=== PATIENT | female | born 1960 | race African-American/Black ===

== ENCOUNTER 2017-06-30 12:51 | Emergency (ER) | payer SELFPAY ==
[~2017-06-30] VITALS: Ht 167.6 cm; Wt 110.0 kg
[~2017-06-30 12:51] MED LIST: COUM5TAB PO; GLUCTAB PO
[2017-06-30 12:54] VITALS: BP 131/69; PULSE 77; RESP 16; TEMP 97.9; O2SAT 98
[2017-06-30] MEDS ORDERED: COUM7.5T PO (13:06)
[2017-06-30] MEDS ORDERED: FURO1TAB60 PO (13:06)
[2017-06-30] MEDS ORDERED: MORPHINE SULFATE 4 MG/ML INJ IV PUSH ONE (14:00)
--- NOTE | 2017-06-30 14:36 | RADRPT ---
EXAM DATE/TIME: 06/30/2017 13:59 [facility] COMPARISON: No previous studies available for comparison. INDICATIONS : Right leg pain. MEDICAL HISTORY : Cerebrovascular accident. Deep vein thrombosis. Pulmonary embolism. Arthritis. Diabetes. Depress ion. SURGICAL HISTORY : section. ENCOUNTER: Initial ACUITY: 1 week PAIN SCORE: 10/10 LOCATION: Right leg. TECHNIQUE: Venous ultrasound of the leg was performed from the inguinal ligament to the proximal calf. Real-philly e, color Doppler and spectral tracing, compression and augmentation techniques were used. FINDINGS: There is normal compressibility of the deep venous system from the inguinal region to the proximal ca lf. No echogenic clot is seen in the lumen of the common femoral, femoral, popliteal, and posterior tibial veins. There is a normal response of the venous system to proximal and distal augmentation an d respiration. CONCLUSION: No DVT in the right leg. Akash Corey MD on June 30, 2017 at 14:34 Board Certified Radiologist. This report was verified electronically.
[2017-06-30 14:50] LABS: ALT (GPT) 15 U/L (10-53); ANION GAP 8 MEQ/L (5-15); AST (GOT) 13 U/L (15-37); BICARBONATE 26.3 MEQ/L (21.0-32.0); BLOOD UREA NITROGEN 11 MG/DL (7-18); CHLORIDE 109 MEQ/L (98-107); GLOMERULAR FILTRATION RATE 86 ML/MIN (>89); POTASSIUM 4.2 MEQ/L (3.5-5.1); SODIUM (NA) 143 MEQ/L (136-145)
[2017-06-30 14:52] LABS: ALKALINE PHOSPHATASE 107 U/L (45-117); TOTAL BILIRUBIN ADULT 0.3 MG/DL (0.2-1.0)
--- NOTE | 2017-06-30 15:37 | RADRPT ---
EXAM DATE/TIME: 06/30/2017 14:57 [facility] COMPARISON: No previous studies available for comparison. INDICATIONS : Right ankle pain, no trauma MEDICAL HISTORY : Cerebrovascular accident. Deep vein thrombosis. Pulmonary embolism. Arthritis. Diabetes. Depression. SURGICAL HISTORY : section. ENCOUNTER: Initial ACUITY: 1 day PAIN SCORE: 9/10 LOCATION: Right ankle FINDINGS: No definite fractures, or dislocations are identified. No definite lytic or sclerotic lesion is seen . Calcaneal spur is present at the attachment site of the plantar aponeurosis. CONCLUSION: Unremarkable study except for calcaneal spur. Tani Evans MD on June 30, 2017 at 15:35 Board Certified Radiologist. This report was verified electronically.
[2017-06-30 16:39] VITALS: BP 131/81; PULSE 69; RESP 18; O2SAT 97
--- NOTE | 2017-06-30 17:07 | PD ---
HPI Chief Complaint: Musculoskeletal Complaint Time Seen by Provider: 13:47 Travel History International Travel<30 days: No Contact w/Intl Traveler<30days: No Traveled to known affect area: No History of Present Illness HPI Patient is a 57-year-old female who comes in complaining of leg pain with chest pain or shortness of breath. She has history of DVT and PE in the past, and has not been on her Coumadin for several months. She says she recently got the Coumadin refilled and has been taking it for the past 3 days. She has had the symptoms over the past 5 days. She does report driving down from [place] about a month ago. She says her symptoms feel like when she had blood clots in the past. She denies any injury to her leg. She denies fever or chills. PFSH Past Medical History Hx Anticoagulant Therapy: Yes (COUMADIN) Arthritis: Yes Asthma: No Blood Disorders: No Depression: Yes Heart Rhythm Problems: No Cancer: No Cardiac Catheterization: No Cardiovascular Problems: Yes (DVT) High Cholesterol: No Chest Pain: Yes Congestive Heart Failure: No COPD: No Cerebrovascular Accident: Yes (1991) Diabetes: Yes Patient Takes Glucophage: No Diminished Hearing: No Deep Vein Thrombosis: Yes Endocrine: No Genitourinary: No Headaches: No Immune Disorder: No Musculoskeletal: Yes Neurologic: Yes (CVA 1991) Psychiatric: Yes Reproductive: No Respiratory: Yes (HX OF PULMONARY EMBOLISM LEFT LUNG 1993) Migraines: No Myocardial Infarction: No Seizures: No Tetanus Vaccination: Unknown Influenza Vaccination: No ?: Not Menopausal: Yes : 3 Para: 3 Past Surgical History Abdominal Surgery: Yes () AICD: No Arteriovenous Shunt: No Section: Yes (X3) Coronary Artery Bypass Graft: No Gynecologic Surgery: Yes Insulin Pump: No Joint Replacement: No Pacemaker: No Other Surgery: No Social History Alcohol Use: No Tobacco Use: No Substance Use: No Allergies-Medications (Allergen,Severity, Reaction): Coded Allergies: No Known Allergies (Unverified , 06/30/17) Reported Meds & Prescriptions Reported Meds & Active Scripts Active Reported Lasix (Furosemide) 40 Mg Tab 40 Mg PO BID Coumadin (Warfarin) 7.5 Mg Tab 7.5 Mg PO DAILY Review of Systems Except as stated in HPI: all other systems reviewed are Neg General / Constitutional: No: Fever, Chills Eyes: No: Blurred Vision HENT: No: Headaches, Lightheadedness Cardiovascular: Positive: Chest Pain or Discomfort Respiratory: Positive: Shortness of Breath Gastrointestinal: No: Nausea, Vomiting Musculoskeletal: Positive: Edema, Pain Skin: No Rash, No Change in Pigmentation Neurologic: No: Weakness, Dizziness Physical Exam Narrative GENERAL: Awake and alert, in no acute distress. SKIN: Focused skin assessment warm/dry. HEAD: Atraumatic. Normocephalic. EYES: Pupils equal and round. No scleral icterus. ENT: Mucous membranes pink and moist. NECK: Trachea midline. No JVD. CARDIOVASCULAR: Regular rate and rhythm. No murmur appreciated. RESPIRATORY: No accessory muscle use. Clear to auscultation. Breath sounds equal bilaterally. GASTROINTESTINAL: Abdomen soft, non-tender, nondistended. MUSCULOSKELETAL: No obvious deformities. No clubbing. No cyanosis. Mild edema to the right lower extremity. Tender to palpation of the right calf. Pedal pulses intact. NEUROLOGICAL: Awake and alert. No obvious cranial nerve deficits. Motor grossly within normal limits. Normal speech. PSYCHIATRIC: Appropriate mood and affect; insight and judgment normal. Data Data Last Documented VS Vital Signs Date Time Temp Pulse Resp B/P Pulse Ox O2 Delivery O2 Flow Rate FiO2 06/30/17 16:39 69 18 131/81 97 Room Air 06/30/17 12:54 97.9 Orders Iv Access Insert/Monitor (06/30/17 13:47) Complete Blood Count With Diff (06/30/17 13:47) Comprehensive Metabolic Panel (06/30/17 13:47) Act Partial Throm Time (Ptt) (06/30/17 13:47) Prothrombin Time / Inr (Pt) (06/30/17 13:47) Ankle, Complete ([id number]) (06/30/17 ) Us Leg Venous Doppler (06/30/17 ) Ct Pulmonary Angiogram (06/30/17 13:47) Morphine Inj (Morphine Inj) (06/30/17 14:00) Vascular Access Team Consult/P PRN (06/30/17 16:29) Vascular Access Team Consult/P PRN (06/30/17 16:29) Vascular Poc Ultrasound (06/30/17 ) Labs Laboratory Tests Test 06/30/17 14:10 Sodium Level 143 MEQ/L Potassium Level 4.2 MEQ/L Chloride Level 109 MEQ/L Carbon Dioxide Level 26.3 MEQ/L Anion Gap 8 MEQ/L Blood Urea Nitrogen 11 MG/DL Creatinine 0.83 MG/DL Estimat Glomerular Filtration 86 ML/MIN Rate Random Glucose 107 MG/DL Calcium Level 9.1 MG/DL Total Bilirubin 0.3 MG/DL Aspartate Amino Transf 13 U/L (AST/SGOT) Alanine Aminotransferase 15 U/L (ALT/SGPT) Alkaline Phosphatase 107 U/L Total Protein 6.6 GM/DL Albumin 3.1 GM/DL MDM Medical Decision Making Medical Screen Exam Complete: Yes Emergency Medical Condition: Yes Differential Diagnosis PE versus DVT versus muscle strain versus arthritis Narrative Course Patient is a 57-year-old female comes in complaining of leg pain and swelling. She says she does have some occasional shortness of breath. IV established, labs sent. Ultrasound of her leg performed shows no evidence of DVT. Ankle x-ray performed shows no acute findings. Patient given pain medicine. Patient signed out to Dr. Tinoco to follow up testing and disposition the patient. Condition: Stable Emma Lion MD Jun 30, 2017 17:07
[2017-06-30 17:39] LABS: AUTOMATED NEUTROPHIL # 2.7 TH/MM3 (1.8-7.7); BASOPHIL % 0.9 % (0.0-2.0); EOSINOPHIL # 0.1 TH/MM3 (0-0.4); EOSINOPHIL % 1.8 % (0.0-4.0); HEMATOCRIT 33.3 % (35.0-46.0); HEMO FLAGS DIFF FINAL; LYMPH % 40.9 % (9.0-44.0); LYMPHOCYTE # 2.3 TH/MM3 (1.0-4.8); MEAN CELL VOLUME 85.4 FL (80.0-100.0); NEUT % 49.4 % (16.0-70.0); PLATELET COUNT 241 TH/MM3 (150-450); RED CELL DISTRIBUTION WIDTH 15.4 % (11.6-17.2); WHITE BLOOD COUNT 5.5 TH/MM3 (4.0-11.0)
[2017-06-30 18:08] LABS: APTT (PATIENT) 25.2 SEC (24.3-30.1); INTERNATIONAL NORMALIZED RATIO 1.2 RATIO; PROTHROMBIN TIME - PATIENT 13.5 SEC (9.8-11.6)
[2017-06-30] MEDS ORDERED: IOHEXOL 350 MG/ML 10 ML VIAL (for RAD DIAG) IV ONE (18:32)
--- NOTE | 2017-06-30 18:37 | RADRPT ---
EXAM DATE/TIME: 06/30/2017 18:19 [facility] COMPARISON: CT PULMONARY ANGIOGRAM, July 26, 2013, 8:25. INDICATIONS : Right leg swelling; prior history of DVT and PE. IV CONTRAST: 75 cc Omnipaque 350 (iohexol) IV RADIATION DOSE: 23.19 CTDIvol (mGy) MEDICAL HISTORY : Deep venous thrombosis. Cardiovascular disease Cerebrovascular disease.Diabetes SURGICAL HISTORY : None. ENCOUNTER: Initial ACUITY: 1 day PAIN SCALE: 8/10 LOCATION: chest TECHNIQUE: Volumetric scanning of the chest was performed using a pulmonary embolism protocol MIP images were re constructed. Using automated exposure control and adjustment of the mA and/or kV according to patien t size, radiation dose was kept as low as reasonably achievable to obtain optimal diagnostic quality images. DICOM format image data is available electronically for review and comparison. Follow-up recommendations for detected pulmonary nodules are based at a minimum on nodule size and pa tient risk factors according to Fleischner Society Guidelines. FINDINGS: The lungs are clear without infiltrate, nodule, or mass except for slight bibasilar linear scar. The re is no pleural effusion. No appreciable pathological adenopathy is seen within the mediastinum. Th ere is no evidence for PE for technique. CONCLUSION: Unremarkable study. Tani Evans MD on June 30, 2017 at 18:34 Board Certified Radiologist. This report was verified electronically.
--- NOTE | 2017-06-30 19:19 | PD ---
Data Data Last Documented VS Vital Signs Date Time Temp Pulse Resp B/P Pulse Ox O2 Delivery O2 Flow Rate FiO2 06/30/17 16:39 69 18 131/81 97 Room Air 06/30/17 12:54 97.9 Orders Iv Access Insert/Monitor (06/30/17 13:47) Complete Blood Count With Diff (06/30/17 13:47) Comprehensive Metabolic Panel (06/30/17 13:47) Act Partial Throm Time (Ptt) (06/30/17 13:47) Prothrombin Time / Inr (Pt) (06/30/17 13:47) Ankle, Complete ([id number]) (06/30/17 ) Us Leg Venous Doppler (06/30/17 ) Ct Pulmonary Angiogram (06/30/17 13:47) Morphine Inj (Morphine Inj) (06/30/17 14:00) Vascular Access Team Consult/P PRN (06/30/17 16:29) Vascular Access Team Consult/P PRN (06/30/17 16:29) Vascular Poc Ultrasound (06/30/17 ) Electrocardiogram (06/30/17 ) Iohexol 350 Inj (Omnipaque 350 Inj) (06/30/17 18:32) Labs Laboratory Tests Test 06/30/17 06/30/17 14:10 17:05 Sodium Level 143 MEQ/L Potassium Level 4.2 MEQ/L Chloride Level 109 MEQ/L Carbon Dioxide Level 26.3 MEQ/L Anion Gap 8 MEQ/L Blood Urea Nitrogen 11 MG/DL Creatinine 0.83 MG/DL Estimat Glomerular Filtration 86 ML/MIN Rate Random Glucose 107 MG/DL Calcium Level 9.1 MG/DL Total Bilirubin 0.3 MG/DL Aspartate Amino Transf 13 U/L (AST/SGOT) Alanine Aminotransferase 15 U/L (ALT/SGPT) Alkaline Phosphatase 107 U/L Total Protein 6.6 GM/DL Albumin 3.1 GM/DL White Blood Count 5.5 TH/MM3 Red Blood Count 3.90 MIL/MM3 Hemoglobin 11.3 GM/DL Hematocrit 33.3 % Mean Corpuscular Volume 85.4 FL Mean Corpuscular Hemoglobin 29.0 PG Mean Corpuscular Hemoglobin 34.0 % Concent Red Cell Distribution Width 15.4 % Platelet Count 241 TH/MM3 Mean Platelet Volume 8.4 FL Neutrophils (%) (Auto) 49.4 % Lymphocytes (%) (Auto) 40.9 % Monocytes (%) (Auto) 7.0 % Eosinophils (%) (Auto) 1.8 % Basophils (%) (Auto) 0.9 % Neutrophils # (Auto) 2.7 TH/MM3 Lymphocytes # (Auto) 2.3 TH/MM3 Monocytes # (Auto) 0.4 TH/MM3 Eosinophils # (Auto) 0.1 TH/MM3 Basophils # (Auto) 0.0 TH/MM3 CBC Comment DIFF FINAL Differential Comment Prothrombin Time 13.5 SEC Prothromb Time International 1.2 RATIO Ratio Activated Partial 25.2 SEC Thromboplast Time MDM Supervised Visit with JESSICA: No Narrative Course This patient is checked out to me by Dr. Banerjee at 5 PM. I have reevaluated her. I reviewed the entirety of the workup with her. Patient is supposed to be on lifelong Coumadin for history of clotting events. Today's ultrasound shows no DVT Today's CT pulmonary angiogram shows no evidence of PE. Her labs are normal. She feels improved and is stable for outpatient follow-up She has Coumadin and a follow-up appointment set up Diagnosis Primary Impression: Shortness of breath Additional Instruction: The patient was advised to follow up with their physician and return if they worsen. Med/Other Pt SpecificInfo: Other Disposition: 01 DISCHARGE HOME Condition: Stable Raffi Jerez MD Jun 30, 2017 19:19
--- NOTE | 2017-07-01 15:57 | EKG ---
Date Performed: 06/30/2017 Time Performed: 17:28:25 PTAGE: 57 years EKG: Sinus rhythm NORMAL ECG Since PREVIOUS TRACING , no significant change noted PREVIOUS TRACIN07/26/2013 11.47 DOCTOR: Pablo Solomon Interpretating Date/Time 07/01/2017 15:56:41
== END 2017-06-30 20:04 | disposition home or self-care (01) ==
LOC: NEPD 12:51
DX: R06.02 Shortness of breath (principal); M79.604 Pain in right leg; R07.9 Chest pain, unspecified; E11.9 Type 2 diabetes mellitus without complications; Z79.01 Long term (current) use of anticoagulants; Z87.39 Personal history of other diseases of the musculoskeletal system and connective tissue; Z86.59 Personal history of other mental and behavioral disorders; Z86.718 Personal history of other venous thrombosis and embolism; Z86.79 Personal history of other diseases of the circulatory system; Z86.69 Personal history of other diseases of the nervous system and sense organs; Z86.711 Personal history of pulmonary embolism
CPT/HCPCS: 71275; 73610; 80053; 85025; 85610; 85730; 93005; 93971; 96374; 99285; J2270; Q9967

== ENCOUNTER 2018-08-31 17:15 | Inpatient (IN) ==
[2018-08-31] MEDS ORDERED: Morphine Inj 4 MG/ML Vial IV.PUSH ONE (17:37)
[2018-08-31 18:47] LABS: Baso # (Auto) 0.1 th/mm3 (0.0-0.2); Baso % (Auto) 0.8 % (0.0-2.0); Eos # (Auto) 0.1 th/mm3 (0.0-0.4); Eos % (Auto) 0.9 % (0.0-4.0); Hematocrit 38.7 % (35.0-46.0); Hemoglobin 12.7 gm/dL (11.6-15.3); Lymph # (Auto) 1.7 th/mm3 (1.0-4.8); Lymph % (Auto) 22.6 % (9.0-44.0); Mean Corpuscular HGB Conc 32.8 % (32.0-36.0); Mean Corpuscular Volume 88.5 fL (80.0-100.0); Mean Platelet Volume 8.3 fL (7.0-11.0); Mono # (Auto) 0.7 th/mm3 (0.0-0.9); Mono % (Auto) 8.9 % (0.0-8.0); Neut # (Auto) 4.9 th/mm3 (1.8-7.7); Neut % (Auto) 66.8 % (16.0-70.0); Platelet Count 277 th/mm3 (150-450); Red Blood Count 4.38 mil/mm3 (4.00-5.30); Red Cell Distribution Width 14.8 % (11.6-17.2); White Blood Count 7.3 th/mm3 (4.0-11.0)
--- NOTE | 2018-08-31 18:52 | ED ---
HPI General Chief Complaint: Respiratory Symptoms Stated Complaint: left leg pain Time Seen by Provider: 08/31/18 17:28 Source: patient and family Mode of arrival: ambulatory Limitations: no limitations History of Present Illness The patient's chief complaint is left leg pain. However, more pertinent complaint is dyspnea. MD Complaint: Reports shortness of breath Onset (ago): hour(s) (Today) Context: Reports recent travel and other (History of previous DVT. She states that she took herself off of Coumadin a year ago. She had the onset of left leg pain 3 days ago and the onset of dyspnea today.) Severity: similar to previous episodes Consistency/Duration: constant Relieving factors: nothing Exacerbating factors: nothing Known history of: Reports PE and DVT; Denies COPD, asthma and congestive heart failure Associated symptoms: Denies chest pain, fever and cough Treatment prior to arrival: Reports other (Tylenol) Related Data Previous Rx's Medication Instructions Recorded albuterol sulfate 2 puff INHALATION Q6H PRN 30 Days 09/02/18 g apixaban [Eliquis] See Label Instructions .ROUTE 09/02/18 .COMPLEX #74 tab Allergies Allergy/AdvReac Type Severity Reaction Status Date / Time No Known Allergies Allergy Verified 08/31/18 17:32 Review of Systems ROS: all other systems reviewed are negative [facility] Medical History Medical History History of blood clots (Acute) Social History Social History Substance History: No History of Abuse Second Hand Smoke Exposure: Yes Smoking Status: Current every day smoker Tobacco Type: Cigarettes How Often Do You Have a Drink Containing Alcohol: Never Recent Travel in [facility] within the Last 8 Weeks: No Recent Out of Country Travel within the Last 8 Weeks: No Immunization History Tetanus Immunization: <5 Years Tetanus Immunization Year if Known: 2017 Exam Const General: cooperative, healthy appearing, comfortable, no acute distress, well developed and well groomed Orientation: alert, awake and oriented x3 HENMT Head: normal to inspection, normocephalic and atraumatic Eyes Alignment and Position: alignment normal Conjunctivae: conjunctivae normal Sclera: sclerae normal EOM: EOM intact bilaterally Neck Neck: normal visual inspection and full ROM Chest Chest: normal inspection of the chest Resp Effort & Inspection: audible wheezes and labored Auscultation: diminished lung sounds and wheezes Cardio Rate: regular rate Rhythm: regular rhythm GI Inspection: normal to inspection Palpation: soft Back/Spine/Pelvis Cervical Spine: cervical ROM normal Thoracic/Lumbar Spine: thoraco-lumbar ROM normal Skin General: no rashes or lesions noted and turgor normal Neuro General: alert, awake, oriented x3, moves all extremities and CN's II-XI intact bilaterally Extrem Left lower extremity: knee (Pain and swelling of the popliteal fossa) Psych Appearance: grossly normal Mental Status: mental status grossly normal Speech and Movement: speech and movement normal Mood: congruent mood Affect: normal affect Attitude: cooperative Thought Process: normal Thought Content: normal Judgment: judgment good Course Initial Documented Vital Signs Temperature 98.7 F 08/31/18 17:17 Pulse Rate 99 H 08/31/18 17:17 Respiratory Rate 22 08/31/18 17:17 Blood Pressure 170/106 H 08/31/18 17:17 Pulse Oximetry 95 08/31/18 17:17 Last Documented Vital Signs Temperature 98.1 F 09/02/18 11:00 Pulse Rate 70 09/02/18 13:00 Respiratory Rate 18 09/02/18 11:00 Blood Pressure 133/77 09/02/18 11:00 Pulse Oximetry 98 09/02/18 14:55 Sign Out Sign Out Data: Patient Sign Out occurred on 08/31/18 at 20:49. Patient's care was discussed, and care was transferred from Alethea Felder to Jase Rincon. Sign Out Comment: This patient is being turned over at 7 PM pending evaluation for possible DVT of the left lower extremity and PE. She had the onset of pain and swelling of the left leg 3 days ago and the onset of shortness of breath today. She has a history of previous DVT. She is not currently on anticoagulation. She denies any history of asthma, COPD or CHF. She has diminished air movement and diffuse wheezing. She is being treated with duo nebs. Last updated by Alethea Felder at 08/31/18 19:01 Post-Handoff Eval: CTA returns with segmental PE and pt remains SOB pt will be heparinized due to acute SOB and CP and needs observation for resp status as well as O2 sat monitor and vascular surgery consult pulmonary consult admit Heparin bolused and drip Medical Decision Making MDM Narrative Medical decision making narrative: This patient presents with a 3-day history of left leg pain and swelling and a 1 day history of dyspnea. She has had a previous DVT/PE. She took herself off of Coumadin a year ago. She states that she currently takes no medications. She denies any previous history of COPD or CHF. On exam, she looks pretty short of breath. She has decreased air movement and wheezing throughout. She also has some tenderness and swelling in the popliteal fossa of the left leg. Ultrasound of the left leg and CT for PE are pending. Medical Screen Exam Complete: Yes Emergency Medical Condition: Yes Differential Diagnosis Differential Diagnosis: Differential diagnosis of leg pain includes but is not limited to lumbar radiculopathy, arthritis, myalgias, DVT. Differential diagnosis of dyspnea includes but is not limited to congestive heart failure, pneumonia, wheezing, pneumothorax, pulmonary embolism Lab Data Result diagrams: 09/02/18 08:29 09/02/18 08:29 Lab Results 08/31/18 08/31/18 08/31/18 Range/Units 18:30 18:30 18:30 WBC 7.3 (4.0-11.0) th/mm3 RBC 4.38 (4.00-5.30) mil/mm3 Hgb 12.7 (11.6-15.3) gm/dL Hct 38.7 (35.0-46.0) % MCV 88.5 (80.0-100.0) fL MCH 29.0 (27.0-34.0) pg MCHC 32.8 (32.0-36.0) % RDW 14.8 (11.6-17.2) % Plt Count 277 (150-450) th/mm3 MPV 8.3 (7.0-11.0) fL Neut % (Auto) 66.8 (16.0-70.0) % Lymph % (Auto) 22.6 (9.0-44.0) % Mason % (Auto) 8.9 H (0.0-8.0) % Eos % (Auto) 0.9 (0.0-4.0) % Baso % (Auto) 0.8 (0.0-2.0) % Neut # (Auto) 4.9 (1.8-7.7) th/mm3 Lymph # (Auto) 1.7 (1.0-4.8) th/mm3 Mason # (Auto) 0.7 (0.0-0.9) th/mm3 Eos # (Auto) 0.1 (0.0-0.4) th/mm3 Baso # (Auto) 0.1 (0.0-0.2) th/mm3 WBC Differential . Differential Comment Auto diff final PT 10.0 (9.8-11.6) sec INR 1.0 Ratio APTT 26.6 (24.3-30.1) sec Sodium 138 (136-145) meq/L Potassium 4.2 (3.5-5.1) meq/L Chloride 103 (98-107) meq/L Carbon Dioxide 29.2 (21.0-32.0) meq/L Anion Gap 6 (5-15) meq/L BUN 9 (7-18) mg/dL Creatinine 1.01 H (0.50-1.00) mg/dL Estimated GFR 69 L (>89) mL/min Random Glucose 109 H (74-106) mg/dL Calcium 8.8 (8.5-10.1) mg/dL Phosphorus (2.5-4.9) mg/dL Magnesium (1.5-2.5) mg/dL Total Bilirubin 0.5 (0.2-1.0) mg/dL AST 14 L (15-37) U/L ALT 14 (10-53) U/L Alkaline Phosphatase 113 (45-117) U/L Troponin I Less than 0.02 L (0.02-0.05) ng/mL Total Protein 7.5 (6.4-8.2) g/dL Albumin 3.0 L (3.4-5.0) g/dL 09/01/18 09/01/18 09/01/18 Range/Units 00:40 00:40 03:20 WBC (4.0-11.0) th/mm3 RBC (4.00-5.30) mil/mm3 Hgb (11.6-15.3) gm/dL Hct (35.0-46.0) % MCV (80.0-100.0) fL MCH (27.0-34.0) pg MCHC (32.0-36.0) % RDW (11.6-17.2) % Plt Count (150-450) th/mm3 MPV (7.0-11.0) fL Neut % (Auto) (16.0-70.0) % Lymph % (Auto) (9.0-44.0) % Mason % (Auto) (0.0-8.0) % Eos % (Auto) (0.0-4.0) % Baso % (Auto) (0.0-2.0) % Neut # (Auto) (1.8-7.7) th/mm3 Lymph # (Auto) (1.0-4.8) th/mm3 Mason # (Auto) (0.0-0.9) th/mm3 Eos # (Auto) (0.0-0.4) th/mm3 Baso # (Auto) (0.0-0.2) th/mm3 WBC Differential Differential Comment PT 10.7 (9.8-11.6) sec INR 1.1 Ratio APTT 84.0 H D 83.6 H (24.3-30.1) sec Sodium (136-145) meq/L Potassium (3.5-5.1) meq/L Chloride (98-107) meq/L Carbon Dioxide (21.0-32.0) meq/L Anion Gap (5-15) meq/L BUN (7-18) mg/dL Creatinine (0.50-1.00) mg/dL Estimated GFR (>89) mL/min Random Glucose (74-106) mg/dL Calcium (8.5-10.1) mg/dL Phosphorus (2.5-4.9) mg/dL Magnesium (1.5-2.5) mg/dL Total Bilirubin (0.2-1.0) mg/dL AST (15-37) U/L ALT (10-53) U/L Alkaline Phosphatase (45-117) U/L Troponin I Less than 0.02 L (0.02-0.05) ng/mL Total Protein (6.4-8.2) g/dL Albumin (3.4-5.0) g/dL 09/01/18 09/01/18 09/01/18 Range/Units 08:21 08:21 08:21 WBC 5.5 (4.0-11.0) th/mm3 RBC 3.90 L (4.00-5.30) mil/mm3 Hgb 11.3 L (11.6-15.3) gm/dL Hct 34.5 L (35.0-46.0) % MCV 88.4 (80.0-100.0) fL MCH 29.0 (27.0-34.0) pg MCHC 32.8 (32.0-36.0) % RDW 15.0 (11.6-17.2) % Plt Count 233 (150-450) th/mm3 MPV 9.1 (7.0-11.0) fL Neut % (Auto) 47.1 (16.0-70.0) % Lymph % (Auto) 37.8 (9.0-44.0) % Mason % (Auto) 13.5 H (0.0-8.0) % Eos % (Auto) 0.6 (0.0-4.0) % Baso % (Auto) 1.0 (0.0-2.0) % Neut # (Auto) 2.6 (1.8-7.7) th/mm3 Lymph # (Auto) 2.1 (1.0-4.8) th/mm3 Mason # (Auto) 0.7 (0.0-0.9) th/mm3 Eos # (Auto) 0.0 (0.0-0.4) th/mm3 Baso # (Auto) 0.1 (0.0-0.2) th/mm3 WBC Differential . Differential Comment Auto diff final PT (9.8-11.6) sec INR Ratio APTT (24.3-30.1) sec Sodium 141 (136-145) meq/L Potassium 3.4 L D (3.5-5.1) meq/L Chloride 105 (98-107) meq/L Carbon Dioxide 28.4 (21.0-32.0) meq/L Anion Gap 8 (5-15) meq/L BUN 9 (7-18) mg/dL Creatinine 0.85 (0.50-1.00) mg/dL Estimated GFR 84 L (>89) mL/min Random Glucose 118 H (74-106) mg/dL Calcium 7.7 L D (8.5-10.1) mg/dL Phosphorus (2.5-4.9) mg/dL Magnesium (1.5-2.5) mg/dL Total Bilirubin 0.5 (0.2-1.0) mg/dL AST 9 L (15-37) U/L ALT 12 (10-53) U/L Alkaline Phosphatase 94 (45-117) U/L Troponin I Less than 0.02 L Cancelled (0.02-0.05) ng/mL Total Protein 6.4 D (6.4-8.2) g/dL Albumin 2.5 L (3.4-5.0) g/dL 09/01/18 09/02/18 09/02/18 Range/Units 11:23 08:29 08:29 WBC 4.4 (4.0-11.0) th/mm3 RBC 3.79 L (4.00-5.30) mil/mm3 Hgb 11.0 L (11.6-15.3) gm/dL Hct 33.6 L (35.0-46.0) % MCV 88.6 (80.0-100.0) fL MCH 29.0 (27.0-34.0) pg MCHC 32.7 (32.0-36.0) % RDW 14.9 (11.6-17.2) % Plt Count 268 (150-450) th/mm3 MPV 7.9 (7.0-11.0) fL Neut % (Auto) 50.7 (16.0-70.0) % Lymph % (Auto) 34.4 (9.0-44.0) % Mason % (Auto) 12.9 H (0.0-8.0) % Eos % (Auto) 1.3 (0.0-4.0) % Baso % (Auto) 0.7 (0.0-2.0) % Neut # (Auto) 2.2 (1.8-7.7) th/mm3 Lymph # (Auto) 1.5 (1.0-4.8) th/mm3 Mason # (Auto) 0.6 (0.0-0.9) th/mm3 Eos # (Auto) 0.1 (0.0-0.4) th/mm3 Baso # (Auto) 0.0 (0.0-0.2) th/mm3 WBC Differential . Differential Comment Auto diff final PT (9.8-11.6) sec INR Ratio APTT 92.6 H* (24.3-30.1) sec Sodium 139 (136-145) meq/L Potassium 4.1 (3.5-5.1) meq/L Chloride 106 (98-107) meq/L Carbon Dioxide 26.2 (21.0-32.0) meq/L Anion Gap 7 (5-15) meq/L BUN 8 (7-18) mg/dL Creatinine 0.70 (0.50-1.00) mg/dL Estimated GFR Greater than 89 (>89) mL/min Random Glucose 112 H (74-106) mg/dL Calcium 8.3 L (8.5-10.1) mg/dL Phosphorus 2.7 (2.5-4.9) mg/dL Magnesium 2.0 (1.5-2.5) mg/dL Total Bilirubin (0.2-1.0) mg/dL AST (15-37) U/L ALT (10-53) U/L Alkaline Phosphatase (45-117) U/L Troponin I (0.02-0.05) ng/mL Total Protein (6.4-8.2) g/dL Albumin 2.3 L (3.4-5.0) g/dL Imaging Data Radiologist's impression: Venous Doppler Study 08/31/18 17:35 CONCLUSION: 1. Extensive nonocclusive deep venous thrombosis in the left lower extremity as above. Chest CTA 08/31/18 17:36 CONCLUSION: 1. Multiple bilateral segmental pulmonary emboli. 2. Subsegmental atelectasis and scarring in the lungs. No pleural or pericardial effusion. Discharge Plan Discharge Disposition Patient Disposition: 01 Discharge Home Discharge Condition Condition: Good Discharge Order Discharge Orders: Discharge Order (Routine); Ordered 09/02/18 Ordered By: Natanael Simon Discharge Details Anticipated Discharge Date: 09/02/18 Discharge Comment: dc if passes shar o2 walk test Diagnosis: PE (pulmonary thromboembolism) Physicians Team ED Provider: Jase Rincon Primary Care Provider: Primary Care Itz,Lea Attending Provider: Natanael Simon Discharge Interventions Interventions: ED Discharge Assessment Last Done: 09/01/18 00:41 Vital Signs Last Done: 08/31/18 20:51 Status ED Status: Left Department Discharge Information Discharge Date/Time: 09/02/18 16:05
[2018-08-31 18:58] LABS: Activated Partial Thrombo Time 26.6 sec (24.3-30.1)
[2018-08-31 19:13] LABS: Anion Gap 6 meq/L (5-15); Aspartate Aminotransferase 14 U/L (15-37); Blood Urea Nitrogen 9 mg/dL (7-18); Calcium 8.8 mg/dL (8.5-10.1); Carbon Dioxide 29.2 meq/L (21.0-32.0); Chloride 103 meq/L (98-107); Glomerular Filtration Rate 69 mL/min (>89); Glucose,Random 109 mg/dL (74-106); Potassium 4.2 meq/L (3.5-5.1); Sodium 138 meq/L (136-145)
[2018-08-31 19:18] LABS: Alanine Aminotransferase 14 U/L (10-53); Alkaline Phosphatase 113 U/L (45-117); Total Protein 7.5 g/dL (6.4-8.2)
--- NOTE | 2018-08-31 19:58 | US ---
EXAM DATE: 08/31/2018 5:35 PM EDT AGE/SEX: 58 years / Female INDICATIONS: Left leg swelling. CLINICAL DATA: This is the patient's initial encounter. Patient reports that signs and symptoms have been present for 1 day and indicates a pain score of 7/10. MEDICAL/SURGICAL HISTORY: . History of Blood clots. . COMPARISON: [facility], LEG LEFT VENOUS DOPPLER, 07/26/2013. . TECHNIQUE: Venous ultrasound of both lower extremities was performed from the inguinal ligament to t he proximal calf. Real-time, color Doppler and spectral tracing, compression and augmentation techni ques were used. FINDINGS: There is nonocclusive thrombus in the proximal superficial femoral vein extending to the p eroneal vein through the popliteal vein. Posterior tibial vein and saphenous vein are patent. CONCLUSION: 1. Extensive nonocclusive deep venous thrombosis in the left lower extremity as above. Electronically signed by: Mark Willams MD 08/31/2018 7:57 PM EDT
--- NOTE | 2018-08-31 20:12 | CT ---
EXAM DATE: 08/31/2018 7:20 PM EDT AGE/SEX: 58 years / Female INDICATIONS: Shortness of breath with DVT; rule out pulmonary embolus. CLINICAL DATA: This is the patient's initial encounter. Patient reports that signs and symptoms have been present for 3 days and indicates a pain score of 7/10. MEDICAL/SURGICAL HISTORY: Deep venous thrombosis. PE None. RADIATION DOSE: 10.64 CTDI (mGy) [place] [facility] [place]30/2017. . TECHNIQUE: Volumetric scanning was performed using a multi-row detector CT scanner during bolus infu farnaz of 58 ml Omnipaque 350 (iohexol) nonionic water-soluble contrast as a single exam dose. The don a was post processed with a variety of visualization algorithms including full volume maximum intensi ty projection and sliding thin slab reformation. Using automated exposure control and adjustment of the mA and/or kV according to patient size, radiation dose was kept as low as reasonably achievable t o obtain optimal diagnostic quality images. DICOM format image data is available electronically for review and comparison. FINDINGS: There is subsegmental atelectasis or scarring in the lungs especially at the lung bases. There is some filling defects in segmental pulmonary arteries noted in both lower lobes and also in t he left upper lobe. No pleural or pericardial effusion. No acute findings in the upper abdomen. CONCLUSION: 1. Multiple bilateral segmental pulmonary emboli. 2. Subsegmental atelectasis and scarring in the lungs. No pleural or pericardial effusion. Electronically signed by: Mark Willams MD 08/31/2018 8:11 PM EDT
[2018-08-31] MEDS ORDERED: Heparin 10,000 UNITS/10 ML Vial (for IV use) IV.PUSH STA (20:57)
[2018-08-31] MEDS ORDERED: Heparin Drip 25,000 UNIT/250 ML BAG IV.CONT PRN (20:57)
[2018-08-31] MEDS ORDERED: Bisacodyl 10 MG Supp RECTAL PRN (21:11)
[2018-08-31] MEDS ORDERED: Acetaminophen 325 MG Tablet PO PRN (21:11)
--- NOTE | 2018-08-31 21:13 | P.HPIM ---
History of Present Illness Primary Care Physician: No Primary Care Physician History of Present Illness: This is a 58-year-old female with a PMH of DVT/PE who presented to the ER w/ complaints of SOB and left leg pain x2 days. States she has h/o PE/DVT 4yrs ago , then had recurrent PE/DVT 2yrs ago, was previously on Coumadin, however off Coumadin for 1yr since she can't afford it. Reports worsening SOB associated w / chest tightness, and severe left leg pain. Pain is 10/10, constant, worse w/ ambulation-now unable to ambulate. On arrival, BP 158/76, HR 94, O2 sat 98% on RA, Afebrile. CBC unremarkable. INR 1.0. Chemistry essentially unremarkable. Troponin negative. LE Doppler extensive nonocclusive DVT of left lower extremity. PA Chest multiple bilateral segmental pulmonary emboli. While in ER , pt w/ persistent c/o SOB and chest pain. Currently on Heparin gtt - Diagnosis (1) PE (pulmonary thromboembolism) (2) DVT (deep venous thrombosis) (3) Chest pain (4) Leg pain Review of Systems PAST FAMILY HISTORY: Reviewed. No h/o DM or CAD All other systems reviewed negative except as stated in HPI PMFSH - History History Provided By: Patient - Medical History Medical History: Medical History (Last Reviewed 08/31/18 @ 18:50 by Alethea Felder) History of blood clots - Tobacco History Tobacco Use In Past 30 Days: Yes Smoking Status: Current every day smoker Tobacco Type: Cigarettes - Alcohol History How Often Do You Have a Drink Containing Alcohol: Monthly or less - Substance Use History Substance History: No History of Abuse - Travel History Recent Travel in the [place] Within the Last 8 Weeks: No Recent Travel Out of the Country Within the Last 8 Weeks: No - Immunization History Tetanus Immunization: <5 Years Tetanus Immunization Year if Known: 2017 Medications and Allergies Active Medications: Active Medications Heparin Sodium/Dextrose (Heparin/D5w 25,000 U/250 Ml) 25,000 unit in 250 mls @ 10 mls/hr IV.CONT TITRATE PRN; Protocol PRN Reason: Per Protocol Allergies Allergy/AdvReac Type Severity Reaction Status Date / Time No Known Allergies Allergy Verified 08/31/18 17:32 Home Medications Medication Instructions Recorded Confirmed Type No Known Home Medications 08/31/18 08/31/18 History Exam Vital signs: Vital Signs 08/31/18 17:17 08/31/18 17:31 08/31/18 17:35 Temperature 98.7 F Pulse Rate 99 H 94 H Respiratory Rate 22 24 Blood Pressure 170/106 H 158/76 H Pulse Oximetry 95 98 99 08/31/18 17:54 08/31/18 18:06 08/31/18 18:07 Temperature Pulse Rate 93 H 93 H Respiratory Rate 19 19 Blood Pressure Pulse Oximetry 100 08/31/18 20:45 08/31/18 20:51 Temperature Pulse Rate 111 H Respiratory Rate 19 Blood Pressure 126/96 H Pulse Oximetry 94 L 98 Intake & Output 08/31/18 08/31/18 09/01/18 06:59 18:59 06:59 Weight 89.358 kg Narrative: PE: GENERAL: Pleasant middle-aged black female in no acute distress. SKIN: Focused skin assessment warm and dry. HEENT: PERRLA, EOMI. No scleral icterus or conjunctival pallor. No lid lag or facial droop. CARDIOVASCULAR: +Tachycardia. No obvious murmurs to auscultation. No chest tenderness to palpation. RESPIRATORY: No obvious rhonchi. Occasional wheezing. Clear to auscultation. Breath sounds equal bilaterally. GASTROINTESTINAL: Abdomen soft, non-tender, nondistended. BS normal. MUSCULOSKELETAL: Extremities without clubbing, cyanosis, or edema. No obvious deformities. NEUROLOGICAL: Awake, alert and oriented x4. No focal neurologic deficits. Moving both upper and lower extremities spontaneously. PSYCHIATRIC: Appropriate mood and affect. Insight and judgment normal. Results - Labs CBC & Chem 7: 08/31/18 18:30 08/31/18 18:30 Labs: Short CBC 08/31/18 Range/Units 18:30 WBC 7.3 (4.0-11.0) th/mm3 Hgb 12.7 (11.6-15.3) gm/dL Hct 38.7 (35.0-46.0) % Plt Count 277 (150-450) th/mm3 BMP 08/31/18 18:30 Sodium 138 Potassium 4.2 Chloride 103 Carbon Dioxide 29.2 BUN 9 Creatinine 1.01 H Calcium 8.8 Cardiac Enzymes 08/31/18 Range/Units 18:30 Troponin I Less than 0.02 L (0.02-0.05) ng/mL Liver Function 08/31/18 Range/Units 18:30 Total Bilirubin 0.5 (0.2-1.0) mg/dL AST 14 L (15-37) U/L ALT 14 (10-53) U/L Alkaline Phosphatase 113 (45-117) U/L Albumin 3.0 L (3.4-5.0) g/dL - Imaging Impressions Venous Doppler Study 08/31/18 17:35 CONCLUSION: 1. Extensive nonocclusive deep venous thrombosis in the left lower extremity as above. Chest CTA 08/31/18 17:36 CONCLUSION: 1. Multiple bilateral segmental pulmonary emboli. 2. Subsegmental atelectasis and scarring in the lungs. No pleural or pericardial effusion. Caprini VTE Risk Assessment Caprini VTE Risk Assessment: Moderate/High Risk (score >= 2) Caprini Risk Assessment Model: Point Value = 1 Point Value = 2 Point Value = 3 Point Value = 5 Age 41-60 Minor surgery BMI > 25 kg/m2 Swollen legs Varicose veins or History of unexplained or recurrent spontaneous Oral contraceptives or hormone replacement Sepsis (< 1 month) Serious lung disease, including pneumonia (< 1 month) Abnormal pulmonary function Acute myocardial infarction Congestive heart failure (< 1 month) History of inflammatory bowel disease Medical patient at bed rest Age 61-74 Arthroscopic surgery Major open surgery (> 45 min) Laparoscopic surgery (> 45 min) Malignancy Confined to bed (> 72 hours) Immobilizing plaster cast Central venous access Age >= 75 History of VTE Family history of VTE Factor V Leiden Prothrombin [id number] Lupus anticoagulant Anticardiolipin antibodies Elevated serum homocysteine Heparin-induced thrombocytopenia Other congenital or acquired thrombophilia Stroke (< 1 month) Elective arthroplasty Hip, pelvis, or leg fracture Acute spinal cord injury (< 1 month) Prophylaxis Regimen: Total Risk Factor Score Risk Level Prophylaxis Regimen 0-1 Low Early ambulation 2 Moderate Order ONE of the following: *Sequential Compression Device (SCD) *Heparin 5000 units SQ BID 3-4 Higher Order ONE of the following medications: *Heparin 5000 units SQ TID *Enoxaparin/Lovenox 40 mg SQ daily (WT < 150 kg, CrCl > 30 mL/min) *Enoxaparin/Lovenox 30 mg SQ daily (WT < 150 kg, CrCl > 10-29 mL/min) *Enoxaparin/Lovenox 30 mg SQ BID (WT < 150 kg, CrCl > 30 mL/min) AND/OR *Sequential Compression Device (SCD) 5 or more Highest Order ONE of the following medications: *Heparin 5000 units SQ TID (Preferred with Epidurals) *Enoxaparin/Lovenox 40 mg SQ daily (WT < 150 kg, CrCl > 30 mL/min) *Enoxaparin/Lovenox 30 mg SQ daily (WT < 150 kg, CrCl > 10-29 mL/min) *Enoxaparin/Lovenox 30 mg SQ BID (WT < 150 kg, CrCl > 30 mL/min) AND *Sequential Compression Device (SCD) Assessment and Plan - Assessment (1) PE (pulmonary thromboembolism) Code(s): I26.99 - Other pulmonary embolism without acute cor pulmonale Status : Acute (2) DVT (deep venous thrombosis) Code(s): I82.409 - Acute embolism and thrombosis of unspecified deep veins of unspecified lower extremity Status: Acute (3) Chest pain Code(s): R07.9 - Chest pain, unspecified Status: Acute (4) Leg pain Code(s): M79.606 - Pain in leg, unspecified Status: Acute - Plan A/P: 1. PE/DVT: Recurrent, h/o PE/DVT 4yrs ago, then again 2yrs ago, off Coumadin x1yr due to financial reasons, now w/ SOB/chest pain and LLE pain. Doppler w/ extensive nonocclusive DVT LLE, CTA Chest w/ multiple bilateral segmental pulmonary emboli, images reviewed. Persistent SOB/Chest pain while in ER, currently on Heparin gtt. Will continue w/ Heparin, likely transition to Eliquis/Xarelto w/ pharmacy assistance as she is unable to afford Coumadin. Symbicort/DuoNeb for bronchospasm. Check Echo to eval for cardiac strain. 2. Chest Pain: Secondary to above, trop negative, will admit to [facility], telemetry , check serial cardiac enzymes. 3. LLE Pain: secondary to DVT, analgesics/antiemetics as needed. 4. DVT Prophylaxis: Heparin gtt 5. Social work for d/c planning as needed. 6. Case discussed w/ ER physician at length, labs/records/imaging reviewed by me.
[2018-08-31] MEDS: Morphine Sulfate Inj 2 MG/ML Vial IV.PUSH PRN (21:30)
[2018-09-01] MEDS: Sod Chloride 0.9% Inj 1,000 ML IV.CONT SCH ×3 (00:50→21:26)
[2018-09-01] MEDS: Morphine Sulfate Inj 2 MG/ML Vial IV.PUSH PRN ×2 (00:50→08:55)
[2018-09-01 01:01] LABS: INR 1.1 Ratio; Prothrombin Time 10.7 sec (9.8-11.6)
[2018-09-01 09:47] LABS: Baso # (Auto) 0.1 th/mm3 (0.0-0.2); Eos % (Auto) 0.6 % (0.0-4.0); Hematocrit 34.5 % (35.0-46.0); Hemoglobin 11.3 gm/dL (11.6-15.3); Lymph # (Auto) 2.1 th/mm3 (1.0-4.8); Lymph % (Auto) 37.8 % (9.0-44.0); Mean Corpuscular HGB Conc 32.8 % (32.0-36.0); Mean Corpuscular Volume 88.4 fL (80.0-100.0); Mean Platelet Volume 9.1 fL (7.0-11.0); Mono # (Auto) 0.7 th/mm3 (0.0-0.9); Mono % (Auto) 13.5 % (0.0-8.0); Neut # (Auto) 2.6 th/mm3 (1.8-7.7); Neut % (Auto) 47.1 % (16.0-70.0); Platelet Count 233 th/mm3 (150-450); White Blood Count 5.5 th/mm3 (4.0-11.0)
[2018-09-01 10:23] LABS: Alanine Aminotransferase 12 U/L (10-53); Albumin 2.5 g/dL (3.4-5.0); Alkaline Phosphatase 94 U/L (45-117); Anion Gap 8 meq/L (5-15); Aspartate Aminotransferase 9 U/L (15-37); Blood Urea Nitrogen 9 mg/dL (7-18); Calcium 7.7 mg/dL (8.5-10.1); Carbon Dioxide 28.4 meq/L (21.0-32.0); Chloride 105 meq/L (98-107); Glomerular Filtration Rate 84 mL/min (>89); Glucose,Random 118 mg/dL (74-106); Potassium 3.4 meq/L (3.5-5.1); Sodium 141 meq/L (136-145); Total Protein 6.4 g/dL (6.4-8.2)
[2018-09-01] MEDS: Senna/Docusate Sodium 8.6/50 MG Tablet PO SCH ×2 (11:22→20:32)
[2018-09-01] MEDS: Budesonide-Formoterol 160/4.5 MCG 6 GM Inhaler INH SCH ×2 (11:22→21:27)
--- NOTE | 2018-09-01 13:45 | P.PNIM ---
Subjective Interval history: Patient says she is feeling a little better than yesterday. Still short of breath and pain at posterior left leg. Physical Exam Vital signs: Vital Signs 08/31/18 17:17 08/31/18 17:31 08/31/18 17:35 Temperature 98.7 F Pulse Rate 99 H 94 H Respiratory Rate 22 24 Blood Pressure 170/106 H 158/76 H Pulse Oximetry 95 98 99 08/31/18 17:54 08/31/18 18:06 08/31/18 18:07 Temperature Pulse Rate 93 H 93 H Respiratory Rate 19 19 Blood Pressure Pulse Oximetry 100 08/31/18 20:45 08/31/18 20:51 09/01/18 00:00 Temperature 98.4 F Pulse Rate 111 H 90 Respiratory Rate 19 16 Blood Pressure 126/96 H 105/67 Pulse Oximetry 94 L 98 98 09/01/18 00:31 09/01/18 01:00 09/01/18 02:00 Temperature Pulse Rate 100 H 94 H 80 Respiratory Rate Blood Pressure Pulse Oximetry 09/01/18 03:00 09/01/18 04:00 09/01/18 05:00 Temperature 101.5 F H Pulse Rate 90 67 88 Respiratory Rate 16 Blood Pressure 104/71 Pulse Oximetry 96 09/01/18 06:00 09/01/18 07:00 09/01/18 08:00 Temperature 99.0 F Pulse Rate 67 74 Respiratory Rate 18 Blood Pressure 111/67 Pulse Oximetry 99 99 09/01/18 11:00 09/01/18 12:40 Temperature 98.7 F Pulse Rate 83 Respiratory Rate 18 Blood Pressure 96/49 L Pulse Oximetry 99 96 Intake & Output 08/31/18 09/01/18 09/01/18 18:59 06:59 18:59 Intake Total 480 / 480 1000 / 1000 Output Total 800 / 800 Balance -320 / -320 1000 / 1000 Weight 89.358 kg 89.5 kg Intake: IV 1000 / 1000 NS Inj 1,000 ML @ 100 mls/hr IV 1000 / 1000 .CONT .Q10H [facility] Rx#:[id number] Oral 480 / 480 Output: Urine 800 / 800 Other: Date of Last Bowel Movement 08/30/18 08/30/18 Narrative: GENERAL: Patient sitting up in bed. Appears comfortable. SKIN: Warm and dry. HEAD: Normocephalic. EYES: No scleral icterus. No injection or drainage. NECK: Supple, trachea midline. No JVD or lymphadenopathy. CARDIOVASCULAR: Regular rate and rhythm without murmurs, gallops, or rubs. RESPIRATORY: Breath sounds equal bilaterally. No accessory muscle use. GASTROINTESTINAL: Abdomen soft, non-tender, nondistended. MUSCULOSKELETAL: No cyanosis. Trace peripheral edema. Tenderness of the posterior left leg with no broken skin. No erythema BACK: Nontender without obvious deformity. No CVA tenderness. Results - Labs CBC & Chem 7: 09/01/18 08:21 09/01/18 08:21 Laboratory Results - last 24 hr 08/31/18 08/31/18 08/31/18 18:30 18:30 18:30 WBC 7.3 RBC 4.38 Hgb 12.7 Hct 38.7 MCV 88.5 MCH 29.0 MCHC 32.8 RDW 14.8 Plt Count 277 MPV 8.3 Neut % (Auto) 66.8 Lymph % (Auto) 22.6 Vernon % (Auto) 8.9 H Eos % (Auto) 0.9 Baso % (Auto) 0.8 Neut # (Auto) 4.9 Lymph # (Auto) 1.7 Vernon # (Auto) 0.7 Eos # (Auto) 0.1 Baso # (Auto) 0.1 WBC Differential . Differential Comment Auto diff final PT 10.0 INR 1.0 APTT 26.6 Sodium 138 Potassium 4.2 Chloride 103 Carbon Dioxide 29.2 Anion Gap 6 BUN 9 Creatinine 1.01 H Estimated GFR 69 L Random Glucose 109 H Calcium 8.8 Total Bilirubin 0.5 AST 14 L ALT 14 Alkaline Phosphatase 113 Troponin I Less than 0.02 L Total Protein 7.5 Albumin 3.0 L 09/01/18 09/01/18 09/01/18 00:40 00:40 03:20 WBC RBC Hgb Hct MCV MCH MCHC RDW Plt Count MPV Neut % (Auto) Lymph % (Auto) Vernon % (Auto) Eos % (Auto) Baso % (Auto) Neut # (Auto) Lymph # (Auto) Vernon # (Auto) Eos # (Auto) Baso # (Auto) WBC Differential Differential Comment PT 10.7 INR 1.1 APTT 84.0 H D 83.6 H Sodium Potassium Chloride Carbon Dioxide Anion Gap BUN Creatinine Estimated GFR Random Glucose Calcium Total Bilirubin AST ALT Alkaline Phosphatase Troponin I Less than 0.02 L Total Protein Albumin 09/01/18 09/01/18 09/01/18 08:21 08:21 08:21 WBC 5.5 RBC 3.90 L Hgb 11.3 L Hct 34.5 L MCV 88.4 MCH 29.0 MCHC 32.8 RDW 15.0 Plt Count 233 MPV 9.1 Neut % (Auto) 47.1 Lymph % (Auto) 37.8 Vernon % (Auto) 13.5 H Eos % (Auto) 0.6 Baso % (Auto) 1.0 Neut # (Auto) 2.6 Lymph # (Auto) 2.1 Vernon # (Auto) 0.7 Eos # (Auto) 0.0 Baso # (Auto) 0.1 WBC Differential . Differential Comment Auto diff final PT INR APTT Sodium 141 Potassium 3.4 L D Chloride 105 Carbon Dioxide 28.4 Anion Gap 8 BUN 9 Creatinine 0.85 Estimated GFR 84 L Random Glucose 118 H Calcium 7.7 L D Total Bilirubin 0.5 AST 9 L ALT 12 Alkaline Phosphatase 94 Troponin I Less than 0.02 L Cancelled Total Protein 6.4 D Albumin 2.5 L 09/01/18 11:23 WBC RBC Hgb Hct MCV MCH MCHC RDW Plt Count MPV Neut % (Auto) Lymph % (Auto) Vernon % (Auto) Eos % (Auto) Baso % (Auto) Neut # (Auto) Lymph # (Auto) Vernon # (Auto) Eos # (Auto) Baso # (Auto) WBC Differential Differential Comment PT INR APTT 92.6 H* Sodium Potassium Chloride Carbon Dioxide Anion Gap BUN Creatinine Estimated GFR Random Glucose Calcium Total Bilirubin AST ALT Alkaline Phosphatase Troponin I Total Protein Albumin - Imaging Impressions Venous Doppler Study 08/31/18 17:35 CONCLUSION: 1. Extensive nonocclusive deep venous thrombosis in the left lower extremity as above. Chest CTA 08/31/18 17:36 CONCLUSION: 1. Multiple bilateral segmental pulmonary emboli. 2. Subsegmental atelectasis and scarring in the lungs. No pleural or pericardial effusion. Assessment and Plan - Assessment (1) PE (pulmonary thromboembolism) Code(s): I26.99 - Other pulmonary embolism without acute cor pulmonale Status : Acute (2) DVT (deep venous thrombosis) Code(s): I82.409 - Acute embolism and thrombosis of unspecified deep veins of unspecified lower extremity Status: Acute (3) Chest pain Code(s): R07.9 - Chest pain, unspecified Status: Acute (4) Leg pain Code(s): M79.606 - Pain in leg, unspecified Status: Acute - Plan //PE/DVT: Recurrent, h/o PE/DVT 4yrs ago, then again 2yrs ago, off Coumadin x1yr due to financial reasons, now w/ SOB/chest pain and LLE pain. Doppler w/ extensive nonocclusive DVT LLE, CTA Chest w/ multiple bilateral segmental pulmonary emboli, images reviewed. Persistent SOB/Chest pain while in ER, currently on Heparin gtt. Will continue w/ Heparin, likely transition to Eliquis/Xarelto w/ pharmacy assistance as she is unable to afford Coumadin. Symbicort/DuoNeb for bronchospasm. Check Echo to eval for cardiac strain. = 09/01. Follow-up echocardiogram. Will start on Eliquis. Discussed risks and benefits of warfarin versus Eliquis. Patient can made understanding. Discussed extensively with patient that she will need to find a primary care doctor // Chest Pain: Secondary to above, trop negative, will admit to [facility], telemetry , check serial cardiac enzymes. // LLE Pain: secondary to DVT, analgesics/antiemetics as needed. // DVT Prophylaxis: Heparin gtt //Social work for d/c planning as needed. //Case discussed w/ ER physician at length, labs/records/imaging reviewed by me. Discussed Condition With: Patient, nurse Discharge Planning: Hopefully discharge in the next 1-2 days if stable.
[2018-09-02] MEDS: Sod Chloride 0.9% Inj 1,000 ML IV.CONT SCH ×2 (03:03→06:43)
[2018-09-02] MEDS: Senna/Docusate Sodium 8.6/50 MG Tablet PO SCH (07:59)
[2018-09-02] MEDS: Budesonide-Formoterol 160/4.5 MCG 6 GM Inhaler INH SCH (07:59)
[2018-09-02 08:39] LABS: Baso % (Auto) 0.7 % (0.0-2.0); Eos # (Auto) 0.1 th/mm3 (0.0-0.4); Eos % (Auto) 1.3 % (0.0-4.0); Hematocrit 33.6 % (35.0-46.0); Lymph # (Auto) 1.5 th/mm3 (1.0-4.8); Lymph % (Auto) 34.4 % (9.0-44.0); Mean Corpuscular HGB Conc 32.7 % (32.0-36.0); Mean Corpuscular Volume 88.6 fL (80.0-100.0); Mean Platelet Volume 7.9 fL (7.0-11.0); Mono # (Auto) 0.6 th/mm3 (0.0-0.9); Mono % (Auto) 12.9 % (0.0-8.0); Neut # (Auto) 2.2 th/mm3 (1.8-7.7); Neut % (Auto) 50.7 % (16.0-70.0); Platelet Count 268 th/mm3 (150-450); Red Blood Count 3.79 mil/mm3 (4.00-5.30); Red Cell Distribution Width 14.9 % (11.6-17.2); White Blood Count 4.4 th/mm3 (4.0-11.0)
[2018-09-02 09:01] LABS: Albumin 2.3 g/dL (3.4-5.0); Anion Gap 7 meq/L (5-15); Blood Urea Nitrogen 8 mg/dL (7-18); Calcium 8.3 mg/dL (8.5-10.1); Carbon Dioxide 26.2 meq/L (21.0-32.0); Chloride 106 meq/L (98-107); Glomerular Filtration Rate Greater Than 89 mL/min (>89); Glucose,Random 112 mg/dL (74-106); Potassium 4.1 meq/L (3.5-5.1); Sodium 139 meq/L (136-145)
[2018-09-02 09:03] LABS: Phosphorus 2.7 mg/dL (2.5-4.9)
--- NOTE | 2018-09-02 10:44 | P.PNIM ---
Subjective Interval history: Patient says she is feeling better today. Shortness of breath has improved. Feels like going home. Reports pain in left leg has improved. Will use Tylenol at home. Advised against NSAIDs due to bleeding risk. Patient conveys understanding.. Physical Exam Vital signs: Vital Signs 09/01/18 11:00 09/01/18 12:00 09/01/18 12:40 Temperature 98.7 F Pulse Rate 79 82 Respiratory Rate 18 Blood Pressure 96/49 L Pulse Oximetry 99 96 09/01/18 13:00 09/01/18 14:00 09/01/18 15:00 Temperature 98.7 F Pulse Rate 80 76 85 Respiratory Rate 18 Blood Pressure 129/59 L Pulse Oximetry 99 09/01/18 16:00 09/01/18 17:00 09/01/18 18:00 Temperature Pulse Rate 70 74 88 Respiratory Rate Blood Pressure Pulse Oximetry 09/01/18 19:00 09/01/18 19:03 09/01/18 20:08 Temperature 98.8 F Pulse Rate 75 79 78 Respiratory Rate 16 Blood Pressure 100/54 L Pulse Oximetry 97 09/01/18 21:02 09/01/18 22:05 09/01/18 23:00 Temperature 99.7 F H Pulse Rate 83 80 80 Respiratory Rate 16 Blood Pressure 109/69 Pulse Oximetry 93 L 09/01/18 23:02 09/02/18 00:05 09/02/18 01:07 Temperature Pulse Rate 81 74 83 Respiratory Rate Blood Pressure Pulse Oximetry 09/02/18 02:04 09/02/18 03:00 09/02/18 03:31 Temperature 98.7 F Pulse Rate 81 72 75 Respiratory Rate Blood Pressure 105/68 Pulse Oximetry 93 L 09/02/18 04:12 09/02/18 05:01 09/02/18 06:18 Temperature Pulse Rate 72 73 81 Respiratory Rate Blood Pressure Pulse Oximetry 09/02/18 07:00 09/02/18 08:00 09/02/18 09:00 Temperature 98.8 F Pulse Rate 75 88 78 Respiratory Rate 16 Blood Pressure 117/74 Pulse Oximetry 96 96 09/02/18 10:00 Temperature Pulse Rate 76 Respiratory Rate Blood Pressure Pulse Oximetry Intake & Output 09/01/18 09/02/18 09/02/18 18:59 06:59 18:59 Intake Total 1940 / 1940 2740 / 2740 1000 / 1000 Output Total 1000 / 1000 700 / 700 Balance 940 / 940 2040 / 2040 1000 / 1000 Weight 89.5 kg Intake: IV 1000 / 1000 2260 / 2260 1000 / 1000 Heparin/D5W 25,000 U/250 mL 25, 260 / 260 000 unit In 250 ml @ 1,000 UNITS/HR 10 mls/hr IV.CONT TITRATE PRN Rx#:[id number] NS Inj 1,000 ML @ 100 mls/hr IV 1000 / 1000 2000 / 1999 1000 / 1000 .CONT .Q10H [facility] Rx#:[id number] Oral 940 / 940 480 / 480 Output: Urine 1000 / 1000 700 / 700 Other: Date of Last Bowel Movement 08/30/18 08/30/18 08/30/18 Narrative: GENERAL: Patient sitting up in bed. Appears comfortable. Alert and oriented x3. SKIN: Warm and dry. HEAD: Normocephalic. EYES: No scleral icterus. No injection or drainage. NECK: Supple, trachea midline. No JVD or lymphadenopathy. CARDIOVASCULAR: Regular rate and rhythm without murmurs, gallops, or rubs. RESPIRATORY: Breath sounds equal bilaterally. No accessory muscle use. GASTROINTESTINAL: Abdomen soft, non-tender, nondistended. MUSCULOSKELETAL: No cyanosis. Trace peripheral edema. Tenderness of the posterior left leg with no broken skin, improved from yesterday. No erythema BACK: Nontender without obvious deformity. No CVA tenderness. Results - Labs CBC & Chem 7: 09/02/18 08:29 09/02/18 08:29 Laboratory Results - last 24 hr 09/01/18 09/02/18 09/02/18 11:23 08:29 08:29 WBC 4.4 RBC 3.79 L Hgb 11.0 L Hct 33.6 L MCV 88.6 MCH 29.0 MCHC 32.7 RDW 14.9 Plt Count 268 MPV 7.9 Neut % (Auto) 50.7 Lymph % (Auto) 34.4 [place] % (Auto) 12.9 H Eos % (Auto) 1.3 Baso % (Auto) 0.7 Neut # (Auto) 2.2 Lymph # (Auto) 1.5 [place] # (Auto) 0.6 Eos # (Auto) 0.1 Baso # (Auto) 0.0 WBC Differential . Differential Comment Auto diff final APTT 92.6 H* Sodium 139 Potassium 4.1 Chloride 106 Carbon Dioxide 26.2 Anion Gap 7 BUN 8 Creatinine 0.70 Estimated GFR Greater than 89 Random Glucose 112 H Calcium 8.3 L Phosphorus 2.7 Magnesium 2.0 Albumin 2.3 L Assessment and Plan - Assessment (1) PE (pulmonary thromboembolism) Code(s): I26.99 - Other pulmonary embolism without acute cor pulmonale Status : Acute (2) DVT (deep venous thrombosis) Code(s): I82.409 - Acute embolism and thrombosis of unspecified deep veins of unspecified lower extremity Status: Acute (3) Chest pain Code(s): R07.9 - Chest pain, unspecified Status: Acute (4) Leg pain Code(s): M79.606 - Pain in leg, unspecified Status: Acute - Plan //PE/DVT: Recurrent, h/o PE/DVT 4yrs ago, then again 2yrs ago, off Coumadin x1yr due to financial reasons, now w/ SOB/chest pain and LLE pain. Doppler w/ extensive nonocclusive DVT LLE, CTA Chest w/ multiple bilateral segmental pulmonary emboli, images reviewed. Persistent SOB/Chest pain while in ER, currently on Heparin gtt. Will continue w/ Heparin, likely transition to Eliquis/Xarelto w/ pharmacy assistance as she is unable to afford Coumadin. Symbicort/DuoNeb for bronchospasm. Check Echo to eval for cardiac strain. = 09/01. Follow-up echocardiogram. Will start on Eliquis. Discussed risks and benefits of warfarin versus Eliquis. Patient conveys understanding. Discussed extensively with patient that she will need to find a primary care doctor. = 09/02. Discharge home on Eliquis. Patient will need to follow-up with primary care. // Chest Pain: Secondary to above, trop negative, will admit to [facility], telemetry , check serial cardiac enzymes. = Chest pain was secondary to bony embolism. // LLE Pain: secondary to DVT, analgesics/antiemetics as needed. This will take [id number] Tylenol at home as per package directions. // DVT Prophylaxis: Therapeutic treatment as above. Discharge Planning: Patient feeling better. Discharge home today. patient will need to follow-up with community clinic as outpatient.
--- NOTE | 2018-09-02 10:56 | P.DS ---
Date of admission: 08/31/18 21:37 Primary care physician: No Primary Care Physician Brief History from admission: This is a 58-year-old female with a PMH of DVT/PE who presented to the ER w/ complaints of SOB and left leg pain x2 days. States she has h/o PE/DVT 4yrs ago , then had recurrent PE/DVT 2yrs ago, was previously on Coumadin, however off Coumadin for 1yr since she can't afford it. Reports worsening SOB associated w / chest tightness, and severe left leg pain. Pain is 10/10, constant, worse w/ ambulation-now unable to ambulate. On arrival, BP 158/76, HR 94, O2 sat 98% on RA, Afebrile. CBC unremarkable. INR 1.0. Chemistry essentially unremarkable. Troponin negative. LE Doppler extensive nonocclusive DVT of left lower extremity. PA Chest multiple bilateral segmental pulmonary emboli. While in ER , pt w/ persistent c/o SOB and chest pain. Currently on Heparin gtt DS: Diagnosis - Discharge Diagnosis (1) PE (pulmonary thromboembolism) Status: Acute (2) DVT (deep venous thrombosis) Status: Acute (3) Chest pain Status: Acute (4) Leg pain Status: Acute DS: Medications - Discharge Medications Prescriptions: RX: albuterol sulfate 2 puff INHALATION Q6H PRN 30 Days g PRN Reason: Shortness Of Breath Or Wheezing apixaban [Eliquis] See Label Instructions .ROUTE .COMPLEX #74 tab DS: Summary Hospital Course: CTA chest showed multiple bilateral segmental pulmonary emboli, and Doppler shows nonocclusive DVT of the left lower extremity. Patient was started on heparin drip, transitioned to Eliquis. Discussed extensively risks and benefits of warfarin versus Eliquis namely the potential irreversibility of Eliquis in the event of a life-threatening bleed.patient says she'll try to find a primary care doctor. For problem-based summary from most recent progress note, please see below. //PE/DVT: Recurrent, h/o PE/DVT 4yrs ago, then again 2yrs ago, off Coumadin x1yr due to financial reasons, now w/ SOB/chest pain and LLE pain. Doppler w/ extensive nonocclusive DVT LLE, CTA Chest w/ multiple bilateral segmental pulmonary emboli, images reviewed. Persistent SOB/Chest pain while in ER, currently on Heparin gtt. Will continue w/ Heparin, likely transition to Eliquis/Xarelto w/ pharmacy assistance as she is unable to afford Coumadin. Symbicort/DuoNeb for bronchospasm. Check Echo to eval for cardiac strain. = 09/01. Follow-up echocardiogram. Will start on Eliquis. Discussed risks and benefits of warfarin versus Eliquis. Patient conveys understanding. Discussed extensively with patient that she will need to find a primary care doctor. = 09/02. Discharge home on Eliquis. Patient will need to follow-up with primary care. // Chest Pain: Secondary to above, trop negative, will admit to [facility], telemetry , check serial cardiac enzymes. = Chest pain was secondary to bony embolism. // LLE Pain: secondary to DVT, analgesics/antiemetics as needed. This will take [id number] Tylenol at home as per package directions. // DVT Prophylaxis: Therapeutic treatment as above. Discharge Planning: Patient feeling better. Discharge home today. patient will need to follow-up with community clinic as outpatient. - Time Spent with Patient Total time spent providing and/or coordinating discharge services: Greater than 30 minutes - Quality: VTE Deep Vein Thrombosis/Pulmonary Embolism Present on Admission: Yes Exam Vital signs: Vital Signs 09/01/18 11:00 09/01/18 12:00 09/01/18 12:40 Temperature 98.7 F Pulse Rate 79 82 Respiratory Rate 18 Blood Pressure 96/49 L Pulse Oximetry 99 96 09/01/18 13:00 09/01/18 14:00 09/01/18 15:00 Temperature 98.7 F Pulse Rate 80 76 85 Respiratory Rate 18 Blood Pressure 129/59 L Pulse Oximetry 99 09/01/18 16:00 09/01/18 17:00 09/01/18 18:00 Temperature Pulse Rate 70 74 88 Respiratory Rate Blood Pressure Pulse Oximetry 09/01/18 19:00 09/01/18 19:03 09/01/18 20:08 Temperature 98.8 F Pulse Rate 75 79 78 Respiratory Rate 16 Blood Pressure 100/54 L Pulse Oximetry 97 09/01/18 21:02 09/01/18 22:05 09/01/18 23:00 Temperature 99.7 F H Pulse Rate 83 80 80 Respiratory Rate 16 Blood Pressure 109/69 Pulse Oximetry 93 L 09/01/18 23:02 09/02/18 00:05 09/02/18 01:07 Temperature Pulse Rate 81 74 83 Respiratory Rate Blood Pressure Pulse Oximetry 09/02/18 02:04 09/02/18 03:00 09/02/18 03:31 Temperature 98.7 F Pulse Rate 81 72 75 Respiratory Rate Blood Pressure 105/68 Pulse Oximetry 93 L 09/02/18 04:12 09/02/18 05:01 09/02/18 06:18 Temperature Pulse Rate 72 73 81 Respiratory Rate Blood Pressure Pulse Oximetry 09/02/18 07:00 09/02/18 08:00 09/02/18 09:00 Temperature 98.8 F Pulse Rate 75 88 78 Respiratory Rate 16 Blood Pressure 117/74 Pulse Oximetry 96 96 09/02/18 10:00 Temperature Pulse Rate 76 Respiratory Rate Blood Pressure Pulse Oximetry Intake & Output 09/01/18 09/02/18 09/02/18 18:59 06:59 18:59 Intake Total 1940 / 1940 2740 / 2740 1000 / 1000 Output Total 1000 / 1000 700 / 700 Balance 940 / 940 2040 / 2040 1000 / 1000 Weight 89.5 kg Intake: IV 1000 / 1000 2260 / 2260 1000 / 1000 Heparin/D5W 25,000 U/250 mL 25, 260 / 260 000 unit In 250 ml @ 1,000 UNITS/HR 10 mls/hr IV.CONT TITRATE PRN Rx#:[id number] NS Inj 1,000 ML @ 100 mls/hr IV 1000 / 1000 2000 / 2000 1000 / 1000 .CONT .Q10H JOE Rx#:[id number] Oral 940 / 940 480 / 480 Output: Urine 1000 / 1000 700 / 700 Other: Date of Last Bowel Movement 08/30/18 08/30/18 08/30/18 Results Procedures completed during hospitalization: No invasive procedures. Labs on day of discharge: Labs from last 24 hours 09/02/18 09/02/18 09/01/18 08:29 08:29 11:23 WBC 4.4 RBC 3.79 L Hgb 11.0 L Hct 33.6 L MCV 88.6 MCH 29.0 MCHC 32.7 RDW 14.9 Plt Count 268 MPV 7.9 Neut % (Auto) 50.7 Lymph % (Auto) 34.4 [place] % (Auto) 12.9 H Eos % (Auto) 1.3 Baso % (Auto) 0.7 Neut # (Auto) 2.2 Lymph # (Auto) 1.5 [place] # (Auto) 0.6 Eos # (Auto) 0.1 Baso # (Auto) 0.0 WBC Differential . Differential Comment Auto diff final APTT 92.6 H* Sodium 139 Potassium 4.1 Chloride 106 Carbon Dioxide 26.2 Anion Gap 7 BUN 8 Creatinine 0.70 Estimated GFR Greater than 89 Random Glucose 112 H Calcium 8.3 L Phosphorus 2.7 Magnesium 2.0 Albumin 2.3 L - Impressions ITS Impressions Venous Doppler Study 08/31/18 17:35 CONCLUSION: 1. Extensive nonocclusive deep venous thrombosis in the left lower extremity as above. Chest CTA 08/31/18 17:36 CONCLUSION: 1. Multiple bilateral segmental pulmonary emboli. 2. Subsegmental atelectasis and scarring in the lungs. No pleural or pericardial effusion. Discharge Plan - Discharge Disposition Patient Disposition: 01 Discharge Home - Discharge Condition Condition: Good - Discharge Order Discharge Orders: Discharge Order (Routine); Ordered 09/02/18 Ordered By: Natanael Simon - Discharge Details Anticipated Discharge Date: 09/02/18 Discharge Comment: dc if passes shar o2 walk test - Physicians Team Primary Care Provider: Primary Care Physici,No Attending Provider: Natanael Simon
[2018-09-02 11:42] VITALS: RESP 18
[2018-09-02 12:51] VITALS: BP 133/77; TEMP 98.1
--- NOTE | 2018-09-02 12:52 | ECHRPT ---
Indication: SOB/ PE CONCLUSIONS Normal left ventricular size. Wall thickness is normal. The left ventricular systolic function is normal with an estimated ejection fraction in the range of 55-60%. Mitral annular calcification is present. Trace mitral valve regurgitation. There is trace tricuspid valve regurgitation. The estimated pulmonary arterial pressure is 30 mmHg. BP: / HR: Rhythm: MEASUREMENTS (Male / Female) Normal Values Technical Quality: 2D ECHO LV Diastolic Diameter PLAX 4.8 cm 4.2 - 5.9 / 3.9 - 5.3 cm LV Systolic Diameter PLAX 3.8 cm IVS Diastolic Thickness 1.1 cm 0.6 - 1.0 / 0.6 - 0.9 cm LVPW Diastolic Thickness 0.7 cm 0.6 - 1.0 / 0.6 - 0.9 cm LV Relative Wall Thickness 0.4 RV Internal Dim ED PLAX 2.1 cm LA Systolic Diameter LX 3.7 cm 3.0 - 4.0 / 2.7 - 3.8 cm DOPPLER MR Peak Velocity 475.0 cm/s MR Peak Gradient 90.3 mmHg Mitral E Point Velocity 107.0 cm/s Mitral A Point Velocity 71.0 cm/s Mitral E to A Ratio 1.5 TR Peak Velocity 224.0 cm/s TR Peak Gradient 20.1 mmHg Right Atrial Pressure 10.0 mmHg Pulmonary Artery Systolic Pressu 30.1 mmHg Right Ventricular Systolic Press 30.1 mmHg FINDINGS LEFT VENTRICLE Normal left ventricular size. Wall thickness is normal. The left ventricular systolic function is normal with an estimated ejection fraction in the range of 55-60%. RIGHT VENTRICLE Normal right ventricular size and systolic function. LEFT ATRIUM The left atrial size is normal. RIGHT ATRIUM The right atrial size is normal. ATRIAL SEPTUM Normal atrial septal thickness without atrial level shunting by limited color doppler interrogation. AORTA The aortic root and proximal ascending aorta are normal in size on limited imaging. MITRAL VALVE Mitral annular calcification is present. Trace mitral valve regurgitation. AORTIC VALVE Mild aortic valve regurgitation. TRICUSPID VALVE There is trace tricuspid valve regurgitation. The estimated pulmonary arterial pressure is 30 mmHg. PULMONARY VALVE No pulmonary valve regurgitation or stenosis. VESSELS The inferior vena cava is normal in size. PERICARDIUM No pericardial effusion. Jose Li MD, FACC (Electronically Signed) Final Date:02 September 2018 12:51
[2018-09-02 13:10] VITALS: PULSE 70
[2018-09-02 14:57] VITALS: O2SAT 98
== END 2018-09-02 16:25 | disposition home or self-care (01) ==
LOC: NEPC 17:15 → NEDA 21:37 → HCIS 09-01 00:27
PROVIDERS: ADMIT Internal Medicine; ATTEND Internal Medicine